=== PATIENT | male | born 1950 | race Caucasian/White ===

== ENCOUNTER → 2016-12-11 | Outpatient (CLI) | payer MEDICARE, BC, OTHER ==
[~2016-12-11] MED LIST: CARVEDILOL; COREG CR40 MG PO; GLUCOSAMINE & C1 CAP PO; MULTIPLE VITAMI1 CAP PO; PREVACID 30MG30 M1 PO
== END ==
LOC: COL.RAD 09:44
DX: Z13.6 Encounter for screening for cardiovascular disorders (principal); Z87.891 Personal history of nicotine dependence

== ENCOUNTER → 2018-06-14 | Outpatient (CLI) | payer MEDICARE, BC, OTHER | LOC: ZCOL.LAB 13:59 | DX: J31.0 Chronic rhinitis (principal) ==

== ENCOUNTER → 2020-06-10 | Outpatient (CLI) | payer MEDICARE | LOC: COL.RAD 11:13 | DX: C85.90 Non-Hodgkin lymphoma, unspecified, unspecified site (principal); E04.2 Nontoxic multinodular goiter ==

== ENCOUNTER 2024-05-19 02:39 | Emergency (ER) | payer MEDICARE, OTHER ==
[~2024-05-19] VITALS: Ht 180.3 cm; Wt 74.1 kg
[~2024-05-19 02:39] MED LIST changes: +ASPIRIN 81M81 MG/TA2 PO; +CALCIUM 600MG+D1 TAB PO; +COREG 25MG25 MG/TAB PO; +COREG CR80 MG PO; +LIPITOR 40MG TA40 MG PO; +MAG-OX 400400 MG/TAB PO; +NATURAL POTASS595 MG PO; +PHARMASSURE ZIN50 MG PO; +PLAVIX 75MG TAB75 MG PO; +PROTONIX 40MG T40 MG PO; +REMERON 15M15 MG/TA1 PO; +VIAGRA100 M1 PO; +VITAMIN C500 MG PO; +ZESTRIL 5MG5 MG PO
[2024-05-19 02:45] VITALS: TEMP 98.1
[2024-05-19] MEDS ORDERED: diphenhydrAMINE 50 MG/ML 1 ML VIAL IV ONE (03:15)
[2024-05-19] MEDS ORDERED: methylPREDNISolone Sod Succ 125 MG/2 ML VIAL IV ONE (03:15)
[2024-05-19] MEDS ORDERED: Ondansetron 4 MG/2 ML VIAL IV SCH (06:00)
[2024-05-19] MEDS ORDERED: Tranexamic Acid 1,000 MG/10 ML VIAL IV SCH (06:00)
[2024-05-21 04:45] VITALS: BP 143/85; PULSE 61
== END 2024-05-20 07:11 | disposition home or self-care (01) ==
LOC: COL.ER 02:39
DX: T78.3XXA Angioneurotic edema, initial encounter (principal); I10 Essential (primary) hypertension; Z79.899 Other long term (current) drug therapy; X58.XXXA Exposure to other specified factors, initial encounter
CPT/HCPCS: J1200